=== PATIENT | female | born 1990 | race Two or more races ===

== ENCOUNTER 2017-12-10 19:32 | Emergency (ER) | payer SELFPAY ==
--- NOTE | 2017-12-10 20:38 | EDM.PDOC ---
ED HPI GENERAL MEDICAL PROBLEM - General Chief Complaint: ENT Problem Stated Complaint: LEFT EAR PAIN Time Seen by Provider: 12/10/17 19:36 Source of Information: Reports: Patient, Family History Limitations: Reports: No Limitations - History of Present Illness INITIAL COMMENTS - FREE TEXT/NARRATIVE: This is a 27-year-old female. She has a history of a duct on the anterior portion of her left ear that apparently periodically gets infected and swells and then goes away. Duct does have some discharge or drainage from it at times. She's never seen anyone for this other than maybe her family doctor to get antibiotics. Apparently it flared up last Wednesday and she went to the clinic and got some doxycycline and this seems to be some more swollen and more painful and she comes to the ER for evaluation. She denies any nausea and vomiting she denies any fever or chills. Due to the swelling and infection stay anterior to the left ear she complains of an earache as well as the side of her face hurting. She says this is been around for many years and it flares up periodically. I suggested she might need to see an ear nose and throat doctor to see if they might want to christine this open if it continues to get worse. 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: Oncologic (Cancer) History: Reports: Cervix - Past Surgical History Female Surgical History: Reports: Section Social & Family History - Family History Family Medical History: Noncontributory - Tobacco Use Smoking Status *Q: Never Smoker - Caffeine Use Caffeine Use: Reports: Coffee - Recreational Drug Use Recreational Drug Use: No ED ROS ENT - Review of Systems Review Of Systems: See Below Constitutional: Denies: Fever, Chills HEENT: Reports: Ear Pain, Other (She appears to have a periauricular sinus tract anterior to the left ear with a duct on the pinna of the ear, there is no drainage presently but it is swollen and very tender when there is no or minimal skin erythema noted over this area even though is very tender) Respiratory: Reports: No Symptoms, Other Cardiovascular: Reports: No Symptoms Endocrine: Reports: No Symptoms GI/Abdominal: Reports: No Symptoms : Reports: No Symptoms Musculoskeletal: Reports: No Symptoms Skin: Reports: No Symptoms Neurological: Reports: No Symptoms Psychiatric: Reports: No Symptoms Hematologic/Lymphatic: Reports: No Symptoms ED EXAM, ENT - Physical Exam Exam: See Below Exam Limited By: No Limitations General Appearance: Alert, WD/WN, No Apparent Distress Eye Exam: Bilateral Eye: Normal Inspection Ears: Normal External Exam, Normal Canal, Normal TMs, Other (She appears to have a periauricular sinus tract anterior to the left ear with a duct on the pinna of the ear, there is no drainage presently but it is swollen and very tender when there is no or minimal skin erythema noted over this area even though is very tender) Nose: Normal Inspection Mouth/Throat: Normal Oropharynx Head: Normocephalic Neck: Supple, Non-Tender, Other (Minimal lymphadenopathy for <jaw) Respiratory/Chest: No Respiratory Distress, Lungs Clear, Normal Breath Sounds Cardiovascular: Regular Rate, Rhythm, No Murmur Back: Full Range of Motion Extremities: Normal Inspection, Normal Range of Motion Neurological: Alert, Oriented Psychiatric: Normal Affect, Normal Mood Skin: Warm, Dry Course - Vital Signs Last Recorded V/S: Last Vital Signs Temp 98.4 F 12/10/17 19:38 Pulse 78 12/10/17 19:38 Resp 18 12/10/17 19:38 BP 144/88 H 12/10/17 19:38 Pulse Ox 100 12/10/17 19:38 - Orders/Labs/Meds Orders: Active Orders 24 hr Category Date Time Status cefTRIAXone 1 GM with Lidocaine 1% 2.1 ML IM Med 12/10/17 21:15 Ordered cefTRIAXone [Rocephin] 1 gm Lidocaine 1% [Xylocaine 1%] 2.1 ml IM Q24H Medication Orders Ceftriaxone Sodium 1 gm/ (Lidocaine HCl 2.1 ml) 0 gm IM Q24H BOG[facility] Labs: Laboratory Tests 12/10/17 12/10/17 Range/Units 20:05 20:05 WBC 10.61 H (3.98-10.04) K/mm3 RBC 4.41 (3.98-5.22) M/mm3 Hgb 12.3 (11.2-15.7) gm/L Hct 37.4 (34.1-44.9) % MCV 84.8 (79.4-94.8) fl MCH 27.9 (25.6-32.2) pg MCHC 32.9 (32.2-35.5) g/dl RDW Std Deviation 40.9 (36.4-46.3) fL Plt Count 272 (182-369) K/mm3 MPV 9.9 (9.4-12.3) fl Neut % (Auto) 63.6 (34.0-71.1) % Lymph % (Auto) 27.7 (19.3-51.7) % Woodson % (Auto) 6.7 (4.7-12.5) % Eos % (Auto) 1.4 (0.7-5.8) Baso % (Auto) 0.3 (0.1-1.2) % Neut # (Auto) 6.75 H (1.56-6.13) K/mm3 Lymph # (Auto) 2.94 (1.18-3.74) K/mm3 Woodson # (Auto) 0.71 H (0.24-0.36) K/mm3 Eos # (Auto) 0.15 (0.04-0.36) K/mm3 Baso # (Auto) 0.03 (0.01-0.08) K/mm3 HCG, Qual Negative (NEGATIVE) Meds: Medications Generic Name Dose Route Start Last Admin Trade Name Freq PRN Reason Stop Dose Admin Ceftriaxone Sodium 1 gm/ 0 gm 12/10/17 21:15 Lidocaine HCl 2.1 ml IM Q24H BOGDAN - Re-Assessments/Exams Free Text/Narrative Re-Assessment/Exam: 12/10/17 21:15 I spoke to the patient regarding her test results. I'm going to give her Dr. Neymar Elliott's phone number who is an ENT gets on-call for [facility] this evening she did this continues to worsen or should start developing a fever or chills she needs to follow up with him for possible lancing of this periauricular sinus tract. Departure - Departure Time of Disposition: 21:16 Disposition: Home, Self-Care 01 Condition: Good Clinical Impression: Abscess of left periauricular region, Facial cellulitis - Discharge Information Prescriptions: Hydrocodone/Acetaminophen [Hydrocodon-Acetaminophen 5-325] 1 each PO Q6H PRN # 12 tablet PRN Reason: Pain Referrals: PCP,None [Primary Care Provider] - Neymar Elliott MD [Ordering Only Provider] - Forms: ED Department Discharge Additional Instructions: Continue with your doxycycline, take the medicine as needed for pain, use ibuprofen or Tylenol as needed for fever, however if your Fevers becomes greater than 101.5 you need to be rechecked immediately, I would call Dr. Neymar Elliott's office on Wednesday [phone] and let him know that you have a periauricular sinus tract infection with swelling and drainag, also let him know that showed white count when you were seen in the emergency department was 10, return to the ER if needed - My Orders Last 24 Hours: My Active Orders 12/10/17 21:15 cefTRIAXone 1 GM with Lidocaine 1% 2.1 ML IM cefTRIAXone [Rocephin] 1 gm Lidocaine 1% [Xylocaine 1%] 2.1 ml IM Q24H - Assessment/Plan Last 24 Hours: My Active Orders 12/10/17 21:15 cefTRIAXone 1 GM with Lidocaine 1% 2.1 ML IM cefTRIAXone [Rocephin] 1 gm Lidocaine 1% [Xylocaine 1%] 2.1 ml IM Q24H
[2017-12-10] MEDS ORDERED: cefTRIAXone 1 GM, Lidocaine 1% 2.1 ML IM SCH ×2 (21:15)
== END 2017-12-10 21:25 | disposition home or self-care (01) ==
LOC: JD.ED 19:32
DX: H60.02 Abscess of left external ear (principal); L03.211 Cellulitis of face
CPT/HCPCS: 36415; 84703; 85025; 96372; 99283; J0696